=== PATIENT | male | born 1960 | race Caucasian/White ===

== ENCOUNTER 2023-07-27 06:11 | Day surgery (SDC) | payer OTHER ==
[~2023-07-27] VITALS: Ht 167.6 cm; Wt 91.3 kg
[~2023-07-27 06:11] MED LIST: ATOR40TA PO; Budeprion Xl300 MG PO; CYCL10 PO; FAMO40 PO; FLUT1DIS8 INH; JARDIANCE25 MG PO; METF500 PO; VITAMIN D310 MC4 PO; ZYRTEC10 M2 PO
[2023-07-27 06:58] VITALS: BP 121/84
--- NOTE | 2023-07-27 07:27 | NUR ---
Ambulatory in Day Surgery Patient confirms NPO status and agrees with scheduled surgery. History, Chart, Medications and Allergies reviewed before start of procedure.Pre-Op teaching done. Pt verbalizes understanding. Patient States Post-Procedure ride home has been arranged.
[2023-07-27 08:19] VITALS: BP 116/102
[2023-07-27 08:26] VITALS: BP 125/89
[2023-07-27 08:38] VITALS: BP 113/89
[2023-07-27 08:52] VITALS: BP 119/83
--- NOTE | 2023-07-27 09:08 | NUR ---
DISCHARGE SUMMARY PT A&OX4, VSS/RA, MARIUSZ PO H20, DENIES PAIN, DENIES NEED TO VOID, IV DC'D. 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 LEFT VIA WC WITH ALL PERSONAL POSSESSIONS INCLUDING DC PACKET AND 1 NARC SCRIPT.
== END 2023-07-27 09:00 | disposition home or self-care (01) ==
LOC: ORSCMMR 06:11 → ORD 08:30 → ORSCMMR 08:30
PROVIDERS: Surgery
PROC: 0JB70ZX Excision of Back Subcutaneous Tissue and Fascia, Open Approach, Diagnostic (ICD-10-PCS; principal; 2023-07-27 07:30)
DX: L72.0 Epidermal cyst (principal); E11.9 Type 2 diabetes mellitus without complications; E03.9 Hypothyroidism, unspecified; J44.9 Chronic obstructive pulmonary disease, unspecified; Z79.84 Long term (current) use of oral hypoglycemic drugs; Z79.899 Other long term (current) drug therapy
CPT/HCPCS: 82947; 88304; J0690; J2250; J2704; J3010; J7120